=== PATIENT | female | born 1990 | race Caucasian/White ===

== ENCOUNTER 2022-06-14 19:26 | Emergency (ER) | payer MEDICAID ==
[~2022-06-14] VITALS: Ht 162.6 cm; Wt 100.0 kg
[2022-06-14 19:44] VITALS: BP 133/78
== END 2022-06-14 22:43 | disposition home or self-care (01) ==
LOC: EMS 19:26
DX: Z13.9 Encounter for screening, unspecified (principal)
CPT/HCPCS: 99281; Z7502

== ENCOUNTER 2023-02-09 08:18 | Emergency (ER) | payer OTHER ==
[~2023-02-09] VITALS: Ht 160 cm; Wt 100.0 kg
[2023-02-09 08:23] VITALS: TEMP 98.5
[2023-02-09] MEDS ORDERED: MULT9LIQ7 PO (08:24)
[2023-02-09 09:20] LABS: TROPONIN I-HIGH SENSITIVITY Less Than 4 ng/L (<51)
[2023-02-09 10:25] VITALS: BP 133/75; PULSE 55; RESP 18
[2023-02-09] MEDS ORDERED: IBUP-1492 PO (10:39)
== END 2023-02-09 12:06 | disposition home or self-care (01) ==
LOC: EMS 08:22
DX: R07.89 Other chest pain (principal); I10 Essential (primary) hypertension
CPT/HCPCS: 71045; 82962; 84484; 93005; 99285; 36415-L1; 36415-TC

== ENCOUNTER 2023-08-18 14:59 | Emergency (ER) | payer OTHER ==
[~2023-08-18] VITALS: Ht 162.6 cm; Wt 95.5 kg
[~2023-08-18 14:59] MED LIST: IBUP-1492 PO; MULT9LIQ7 PO
[2023-08-18 15:04] VITALS: BP 133/89; PULSE 80; RESP 18; TEMP 98.2
[2023-08-18] MEDS ORDERED: CYCL-448 PO (23:07)
== END 2023-08-18 16:03 | disposition left against medical advice (07) ==
LOC: EMS 15:00
DX: M25.511 Pain in right shoulder (principal); Z53.21 Procedure and treatment not carried out due to patient leaving prior to being seen by health care provider

== ENCOUNTER 2023-08-18 16:32 | Emergency (ER) | payer OTHER ==
[~2023-08-18] VITALS: Ht 162.6 cm; Wt 95.0 kg
[2023-08-18 16:38] VITALS: BP 132/81; PULSE 89; RESP 17; TEMP 98.2
[2023-08-18] MEDS: ACETAMINOPHEN 500 MG TABLET PO ONE (21:29)
[2023-08-18] MEDS ORDERED: CYCL-448 PO (23:07)
== END 2023-08-18 23:11 | disposition home or self-care (01) ==
LOC: EMS 16:33
DX: S40.012A Contusion of left shoulder, initial encounter (principal); S40.011A Contusion of right shoulder, initial encounter; W20.8XXA Other cause of strike by thrown, projected or falling object, initial encounter; Y93.89 Activity, other specified; Y92.89 Other specified places as the place of occurrence of the external cause; Y99.8 Other external cause status
CPT/HCPCS: 99283

== ENCOUNTER 2024-06-12 14:09 | Emergency (ER) | payer OTHER ==
[~2024-06-12] VITALS: Ht 162.6 cm; Wt 100.0 kg
[~2024-06-12 14:09] MED LIST changes: +CYCL-448 PO; -IBUP-1492 PO; -MULT9LIQ7 PO
[2024-06-12 14:15] VITALS: TEMP 97.5
[2024-06-12 15:45] VITALS: BP 136/71; PULSE 66; RESP 16; O2SAT 98
[2024-06-12] MEDS ORDERED: TRAM50TA5 PO (15:52)
== END 2024-06-12 16:08 | disposition home or self-care (01) ==
LOC: EMS 14:15
DX: S93.402A Sprain of unspecified ligament of left ankle, initial encounter (principal); X50.1XXA Overexertion from prolonged static or awkward postures, initial encounter; Y93.02 Activity, running; Y92.89 Other specified places as the place of occurrence of the external cause; Y99.8 Other external cause status
CPT/HCPCS: 99283